=== PATIENT | male | born 1995 | race Caucasian/White ===

== ENCOUNTER 2016-06-07 20:34 | Emergency (ER) | payer OTHER ==
[2016-06-07 20:38] VITALS: TEMP 98.8
--- NOTE | 2016-06-07 22:13 | EDPHY ---
H & P Time Seen by Provider: 06/07/16 20:48 HPI/ROS: CHIEF COMPLAINT: Chin laceration HISTORY OF PRESENT ILLNESS: 20-year-old male presents emergency department after a fall while ice skating tonight. Patient sustained a laceration to his chin. He states he fell 1st onto his right shoulder and then hit his chin on the ice. He denies shoulder pain, no loss of consciousness, no neck pain, tetanus is up-to-date, denies other complaints. Smoking Status: Never smoked Physical Exam: GEN: Awake, alert, oriented, no acute distress HEENT: Opens and closes mouth without difficulty, no loose teeth, no mandibular tenderness RESP: nl resp effort MSK: No C-spine tenderness to palpation SKIN: 2.5 cm superficial laceration to chin Neuro grossly intact Constitutional: Initial Vital Signs Temperature (C) 37.1 C 06/07/16 20:36 Heart Rate 60 06/07/16 20:36 Respiratory Rate 16 06/07/16 20:36 Blood Pressure 163/84 H 06/07/16 20:36 O2 Sat (%) 94 06/07/16 20:36 O2 Delivery Mode Room Air Allergies/Adverse Reactions: No Known Allergies Allergy (Unverified 06/07/16 20:36) Home Medications: Medication Instructions Recorded NK [No Known Home Meds] 06/07/16 MDM/Departure - MDM Procedures: Procedure: Laceration repair. Verbal consent was obtained from the patient. The 2.5 cm laceration on the chin was anesthetized using 1% lidocaine with epinephrine. The wound was carefully irrigated by the emergency department racking technician. Next, the wound was prepped and draped in sterile fashion and explored to its base with a gloved finger. There were no deep structures involved. No vascular injury was identified. No foreign bodies were identified. The wound was repaired with 5.0 Prolene, 7 simple interrupted sutures. The wound repair was simple. The procedure was performed by myself. Tetanus and antibiotic status were addressed. ED Course/Re-evaluation: This patient presents after a minor head injury with no headache, amnesia or LOC. Neurologic exam normal. No indication for neuro imaging. CHI precautions given. Differential Diagnosis: The differential diagnosis for the patient's head injury included but was not limited to concussion, skull fracture, intra-parenchymal contusion, subarachnoid , subdural and epidural hematoma. - Depart Disposition: Home, Routine, Self-Care Clinical Impression: Chin laceration Qualifiers: Encounter type: initial encounter Qualifier Code: (S01.81XA) Laceration without foreign body of other part of head, initial encounter Minor head injury without loss of consciousness Qualifiers: Encounter type: initial encounter Qualifier Code: (S09.90XA) Unspecified injury of head, initial encounter Condition: Good Instructions: Facial Laceration (ED), Head Injury (ED) Additional Instructions: Return to the emergency department in 5 days for suture removal, return sooner for signs of infection. Return for forceful vomiting, confusion, altered gait or any other questions or concerns. Referrals: [place],. [Primary Care Provider] - As per Instructions
[2016-06-07 22:21] VITALS: BP 148/62; PULSE 68; RESP 18; O2SAT 99
== END 2016-06-07 22:21 | disposition home or self-care (01) ==
PROC: 0HQ1XZZ Repair Face Skin, External Approach (ICD-10-PCS; principal; 2016-06-07)
DX: S01.81XA Laceration without foreign body of other part of head, initial encounter (principal); S09.90XA Unspecified injury of head, initial encounter; V00.211A Fall from ice-skates, initial encounter